=== PATIENT | male | born 1955 | race Caucasian/White ===

== ENCOUNTER 2021-04-27 19:01 | Emergency (ER) | payer BC ==
[~2021-04-27] VITALS: Ht 188 cm; Wt 112.0 kg
== END 2021-04-27 23:02 | disposition home or self-care (01) ==
LOC: ER1 19:01
DX: U07.1 COVID-19 (principal); E11.9 Type 2 diabetes mellitus without complications; Z23 Encounter for immunization
CPT/HCPCS: 99283; M0245; U0002

== ENCOUNTER 2021-06-05 01:29 | Emergency (ER) | payer BC ==
[2021-06-05] MEDS ORDERED: MIRALAX 119 GR119 GM GT (05:02)
[2021-06-05] MEDS ORDERED: ANUSOL HC SUPP1 SUPP PR (05:08)
== END 2021-06-05 05:09 | disposition home or self-care (01) ==
LOC: ER1 01:29
DX: K59.00 Constipation, unspecified (principal); K64.5 Perianal venous thrombosis
CPT/HCPCS: 51702; 99283